=== PATIENT | female | born 1965 | race Caucasian/White ===

== ENCOUNTER → 2025-02-09 08:49 | Outpatient (CLI) | payer MEDICARE, MEDICAID, SELFPAY | PROVIDERS: PCP Family Medicine; Referring Provider Family Medicine; Visit Provider Family Medicine | DX: R00.2 Palpitations (principal); I48.91 Unspecified atrial fibrillation; I48.92 Unspecified atrial flutter; Z98.890 Other specified postprocedural states | CPT/HCPCS: 93246 ==

== ENCOUNTER → 2025-02-09 09:02 | Outpatient (CLI) | payer MEDICARE, MEDICAID, SELFPAY ==
[2025-02-09 09:48] LABS: Add Manual Diff / Slide Review NO; Basophils Absolute Auto 0 /uL (0-100); Basophils Percent Auto 0.6 % (0-2); Eosinophils Absolute Auto 200 /uL (0-450); Eosinophils Percent Auto 2.3 % (2-4); Hematocrit 41.4 % (36-46); Hemoglobin 14.3 g/dL (12.0-16.0); Lymphocytes Absolute Auto 2900 /uL (1100-4500); Lymphocytes Percent Auto 34.1 % (25-40); Mean Corpuscular HGB Conc 34.5 % (30-36); Mean Corpuscular Hemoglobin 31.7 PG (26-34); Mean Corpuscular Volume 91.9 fL (80-100); Monocytes Absolute Auto 600 /uL (0-900); Monocytes Percent Auto 7.5 % (3-14); Neutrophils Absolute Auto 4600 /uL (1500-7000); Neutrophils Percent Auto 55.5 % (50-75); Platelet Count 306 X10^3/uL (150-400); Red Blood Cell Count 4.51 X10^6/uL (4.0-5.2); Red Cell Distribution Width 12.9 % (11.6-14.8); White Blood Cell Count 8.4 X10^3/uL (4.5-11.0)
[2025-02-09 09:55] LABS: Hemoglobin A1C% w Est Avg Glu 6.4 % (4.0-6.0)
[2025-02-09 10:05] LABS: Alanine Aminotransferase 22 IU/L (<35); Albumin 4.5 g/dL (3.5-5.0); Alkaline Phosphatase 60 U/L (38-126); Aspartate Aminotransferase 24 IU/L (14-36); BUN Creatinine Ratio 15.3 (6-22); Bilirubin Total 0.7 mg/dL (0.2-1.3); Blood Urea Nitrogen 9 mg/dL (7-17); Calcium 9.5 mg/dL (8.4-10.2); Carbon Dioxide 21 mmol/L (22-32); Chloride 106 mmol/L (98-107); Cholesterol 121 mg/dL (140-199); Estimated Glomerular Filt Rate > 60 mL/min (>60); Globulin 2.3 g/dL (1.7-4.1); Glucose 89 mg/dL (70-99); HDL Cholesterol 33 mg/dL (40-60); HEMOLYSIS < 15 (0-50); LDL Cholesterol Calculated 51 mg/dL (<100); Potassium 3.7 mmol/L (3.4-5.1); Sodium 139 mmol/L (137-145); Total Protein 6.8 g/dL (6.3-8.2); Triglycerides 185 mg/dL (35-150)
== END ==
PROVIDERS: PCP Family Medicine; Referring Provider Family Medicine; Visit Provider Family Medicine
DX: E11.9 Type 2 diabetes mellitus without complications (principal); I10 Essential (primary) hypertension; E78.5 Hyperlipidemia, unspecified
CPT/HCPCS: 36415; 80053; 80061; 83036; 85025; 93246

== ENCOUNTER → 2025-02-27 06:59 | Outpatient (CLI) | payer MEDICARE, MEDICAID, SELFPAY ==
--- NOTE | 2025-02-27 07:01 | DI.MG.S_ITS ---
MM screening mammo BI: 02/27/2025. BI-RADS: 1 CLINICAL: 59-year old female for bilateral screening mammogram. Tyrer-Cuzick lifetime risk of 14.2%. Current reported family history of breast cancer: mother and maternal aunt. History of ovarian cancer in one first-degree relative. The patient had a prior right breast biopsy. PRIOR EXAMS 09/28/2023, 05/28/2022, 10/31/2020. MAMMOGRAPHY TECHNIQUE: 2D and 3D (tomosynthesis) digital mammographic views obtained, with additional images as needed for full coverage. Current study was also evaluated with a Computer Aided Detection (CAD) system. DENSITY B. There are scattered areas of fibroglandular density. MAMMOGRAPHY FINDINGS Bilateral: No suspicious mass, asymmetry, microcalcification, or other abnormality seen. No significant change from comparison. IMPRESSION: * No evidence of malignancy. RECOMMENDATIONS Bilateral * Annual screening mammography. OVERALL ASSESSMENT CATEGORY BI-RADS-1: Negative. The [employer] recommends annual screening mammography beginning at age 40 for women with average risk of breast cancer. ELECTRONICALLY SIGNED: Rick Delgado M.D. on 02/27/2025 at 03:41:02 PM PT Interpreting Station ID: [id number]
--- NOTE | 2025-02-27 07:24 | DI.ECHO.S_ITS ---
[facility]+ [facility] : : [id number] : : [place] : : [id number] : : Phone: [phone] Echocardiogram Report + + :Name: ZACHARY ASHFORD Study Date: 02/27/2025 Height: 69 in : :Hospital ReadingLocation: Weight: 236 lb : : Gender: Female BSA: 2.2 m2 : :: 1965 Age: 59 yrs BP: 136/67 mmHg: :Reason For Study: Palpitations : :Ordering Physician: LOUIS, : :SAMANTHA Performed By: Bri Fowler : :Referring: SAMANTHA MYERS : + + Interpretation Summary The ejection fraction is estimated to be 55-60%. Diastolic parameters suggest probable normal left ventricular diastolic function and normal filling pressures. The right ventricle grossly appears normal in size with probable normal systolic function. Both atria are normal in size. No significant valvular abnormality The IVC is of normal diameter and collapses greater than 50% with a sniff. This suggests a low right atrial pressure of 3 mm Hg. Procedure: A two-dimensional transthoracic echocardiogram with color flow and Doppler was performed. The study quality was technically adequate. Comparison is made with the echocardiogram of 07-11-15. The heart rate ranged between 79-81 bpm during the study. Left Ventricle: The left ventricle is normal in size and wall thickness. The ejection fraction is estimated to be 55-60%. Diastolic parameters suggest probable normal left ventricular diastolic function and normal filling pressures. Right Ventricle: The right ventricle grossly appears normal in size with probable normal systolic function. Atria: The left atrial size is normal. Both atria are normal in size. Right atrial size is normal. The interatrial septum grossly appears intact with no obvious evidence for an atrial septal defect. Lipomatous hypertrophy of the interatrial septum is noted. Mitral Valve: The mitral valve is normal in structure and function. There is no mitral valve stenosis. There is no mitral regurgitation noted. Aortic Valve: The aortic valve is trileaflet. The aortic valve opens well. There is no aortic valve stenosis. No aortic regurgitation is present. Tricuspid Valve: The tricuspid valve leaflets are thin and pliable. No tricuspid regurgitation. Pulmonic Valve: The pulmonic valve is not well seen, but is grossly normal. There is no pulmonic valvular regurgitation. Great Vessels: The aortic root is normal size. The ascending aorta is normal in size. The aortic arch is normal in size. The IVC is of normal diameter and collapses greater than 50% with a sniff. This suggests a low right atrial pressure of 3 mm Hg. Pericardium/ Pleura There is no pericardial effusion. There has been no significant change since the previous study. MMode/2D Measurements & Calculations LVIDd: 4.7 cm LVOT diam: 2.2 cm EPSS: 0.81 cm Ao root diam: 3.3 cm IVSd: 1.0 cm asc Aorta Diam: 3.6 cm LVPWd: 1.0 cm Ao Arch Diam (Prox Trans): 2.7 cm LV martinez. diameter/BSA (cm/m^2): 2.1 LA A2 area: 22.3 cm2 RA long axis: 4.9 cm LA A4 area: 19.6 cm2 RA area: 15.1 cm2 LA length (vol): 5.9 cm RA vol: 39.6 ml LA vol: 62.9 ml RA : 17.9 ml/m2 LA vol index: 28.4 ml/m2 IVC diam: 1.4 cm RVD1 (basal): 2.5 cm TAPSE: 2.3 cm Doppler Measurements & Calculations Ao V2 max: 168.1 cm/sec LVOT Max Benny: 98.5 cm/sec Ao V2 mean: 116.3 cm/sec LV V1 max P.9 mmHg Ao max P.3 mmHg LV V1 VTI: 21.5 cm Ao mean P.2 mmHg JESSICA(I,D): 2.5 cm2 Ao V2 VTI: 31.9 cm JESSICA(V,D): 2.2 cm2 sev ratio: 0.67 JESSICA indexed to BSA (cm^2/m^2): 1.1 MV E max benny: 80.7 cm/sec TR max benny: 220.0 cm/sec MV A max benny: 74.9 cm/sec TR max P.4 mmHg MV E/A: 1.1 PA V2 max: 79.9 cm/sec Med Peak E' Benny: 5.3 cm/sec PA V2 mean: 46.9 cm/sec E/E' med: 15.3 PA mean P.1 mmHg Lat Peak E' Benny: 6.4 cm/sec PA pr(Accel): 1.9 mmHg E/E' lat: 12.5 E/e' average: 13.9 MV dec time: 0.28 sec SV(OT): 80.3 ml Reading Physician:10:39 AM
== END ==
PROVIDERS: PCP Family Medicine; Referring Provider Family Medicine; Visit Provider Family Medicine
DX: Z12.31 Encounter for screening mammogram for malignant neoplasm of breast (principal); Z80.3 Family history of malignant neoplasm of breast; Z80.41 Family history of malignant neoplasm of ovary; R00.2 Palpitations; I49.9 Cardiac arrhythmia, unspecified; R07.89 Other chest pain
CPT/HCPCS: 77063; 77067; 93306

== ENCOUNTER → 2025-06-14 10:41 | Outpatient (CLI) | payer MEDICARE, MEDICAID, SELFPAY ==
[2025-06-14 11:11] LABS: Hemoglobin A1C% w Est Avg Glu 6.6 % (4.0-6.0)
== END ==
PROVIDERS: PCP Family Medicine; Referring Provider Family Medicine; Visit Provider Family Medicine
DX: E11.9 Type 2 diabetes mellitus without complications (principal)
CPT/HCPCS: 36415; 83036